=== PATIENT | female | born 1960 | race Caucasian/White ===

== ENCOUNTER 2023-03-14 11:44 | Emergency (ER) | payer MEDICARE, MEDICAID, SELFPAY ==
--- NOTE | ~2023-03-14 | XR_ITS ---
EXAMINATION: XR FOOT, LEFT CLINICAL INFORMATION: Question cellulitis, pain COMPARISON: None available. TECHNIQUE: AP, lateral, and oblique views of the left foot. FINDINGS: No acute visible fracture or dislocation. Slight enthesopathy at the base of the fifth metatarsal. Mild multi joint arthritic changes. Joint spaces and alignment are otherwise maintained. Soft tissues are unremarkable. XR/XR foot LT min 3V IMPRESSION: 1. No acute visible fracture or dislocation. 2. Slight enthesopathy at the base of the fifth metatarsal. 3. Mild multi joint arthritic changes.
[2023-03-14 11:59] VITALS: BP 119/78; PULSE 100; RESP 18; TEMP 36.7; O2SAT 98; BMI 30.9
--- NOTE | 2023-03-14 12:04 | ED.EXTPRO ---
HPI - Extremity Problem General Chief complaint: Extremity Problem Stated complaint: foot pain Time Seen by Provider: 03/14/23 13:38 History of Present Illness HPI Narrative: 63-year-old female with history of gout and frequent candidal foot infections, presents to ER today with several day history of pain, swelling of left great toe. Patient describes that 1 month ago, she noticed a slit on the plantar aspect of her left great toe, at the MTP joint. She went to her PCP who recommended moisturizers. Within the last week, she noticed a small blood blister originating at the nail bed of her great big toe. She states that the blood blister has been progressively growing in size over the last week. She reports that in the last few days her great toe has been swollen, warm, extremely painful to touch, and burning. She states that the pain radiates up her dorsal foot, ending around the proximal end of her great metatarsal. States she has been taking Tylenol and Aleve without relief. Has had episodes of gout in the past, resolved by a 10-day course of prednisone. Has been using antifungal creams regularly on her feet for months. Denies any fevers, chills, body aches, vomiting. Denies any personal history of diabetes. Denies blood thinners. MD Complaint: joint swelling and joint pain Onset (ago): day(s) Pain Consistency: constant Location: toe Quality: burning Radiation: proximal Exacerbating factors: walking and palpation Context: history of gout Related Data Previous Rx's Medication Instructions Recorded cephalexin 500 mg tablet 500 mg PO Q6H 7 days #28 tabs 03/14/23 colchicine (gout) 0.6 mg tablet 0.6 mg PO BID #14 tabs 03/14/23 (Colcrys) doxycycline hyclate 100 mg tablet 100 mg PO BID #14 tabs 03/14/23 naproxen 500 mg tablet,delayed 500 mg PO BID #14 tabs 03/14/23 release oxycodone 5 mg tablet 5 mg PO TID PRN severe pain (scale 03/14/23 score 7-10) #7 tabs prednisone 50 mg tablet 50 mg PO DAILY #5 tabs 03/14/23 Allergies Allergy/AdvReac Type Severity Reaction Status Date / Time No Known Allergies Allergy Verified 03/14/23 12:01 Review of Systems Review of Systems: Yes all other systems are reviewed and are negative FORMERLY [facility], [facility]–1983 Social History Social History Advance Directives: No Advance Directives Information Provided: Yes Physical Exam Vital Signs: Vital Signs: Last Vital Signs Temp 98.1 F 03/14/23 11:59 Pulse 100 03/14/23 11:59 Resp 18 03/14/23 11:59 BP 119/78 03/14/23 11:59 Pulse Ox 98 03/14/23 11:59 O2 Del Method Room Air 03/14/23 11:59 BMI result Body Mass Index 30.9 Const: General: cooperative, healthy appearing, comfortable and no acute distress Orientation/consciousness: patient oriented x3 Resp: Effort & Inspection: normal respiratory effort and able to speak in complete sentences Cardio: Peripheral pulses: posterior tibial pulses present and dorsalis pedis present Neuro: General: patient oriented x3 Extrem: Left lower extremity: foot Details: abnormal to inspection (5 cm superficial blood blister to dorsal aspect of left great toe, spanning from proximal nail bed to nearly MTP joint.), tenderness Location: of the great toe Location: along the entire digit, abnormal ROM of toe, warmth Location: of the great toe Location: along the dorsal aspect and along the entire digit, edema Location: of the great toe Location: at the MTP joint and laceration (Slit to plantar aspect of MTP joint of great left toe.) Course Course Course Narrative: This is an RME: Additional HPI, ROS, PE not included below will be deferred to primary provider. This is a [id number]-female, with a hx of gout, presenting to the ER with a complaint of left great toe pain x 2 days. No trauma or injury. ?hematoma vs blood blister on left great toe. Warm, mildly erythematous, limited ROM. Plan: Labs, inflammatory markers, xray left great toe ordered. Medications Administered Discontinued Medications Generic Name Dose Route Start Last Admin Trade Name Freq PRN Reason Stop Dose Admin Colchicine 1.2 mg 03/14/23 15:08 03/14/23 15:43 Colchicine 0.6 Mg Tablet PO 03/14/23 15:09 1.2 mg ONCE ONE Administration Ketorolac Tromethamine 30 mg 03/14/23 14:36 03/14/23 14:46 Ketorolac Tromethamine 30 Mg/Ml Vial IM 03/14/23 14:37 30 mg ONCE ONE Administration Medical Decision Making Medical Decision Making MDM Narrative: 63-year-old female with history of gout, presents with 1 week history of lesion to toe. 1 month ago, she noticed slit on plantar aspect of great toe in MTP joint space. In the last few days, the hematoma has spread and her toe is now painful, erythematous, swollen. Cannot move her toes on left foot. Physical exam reveals decreased range of motion of phalanges of left foot. Left great toe has 5 cm hematoma and left medial great toe is swollen, extremely painful to touch. WBC, CRP, and uric acid are all increased. XR shows no fracture or dislocation. Will prescribe colchicine to treat likely gout flare, as well as Keflex to treat possible infection of great toe. Hesitant to use NSAIDs or prednisone in treatment of gout considering patient's concurrent use of Alleve, and do not want prednisone to worsen potential infection. Comfortable using colchicine because patient's renal function is within normal limits. Differential Diagnosis Differential Diagnoses: The differential diagnosis associated with the presentation includes gout, cellulitis, septic joint, pseudogout, hematoma, blood blister, open fracture Admission/Observation Consideration of admission/observation: Escalation of care including admission/observation considered Lab Data [facility] Lab Attestation statement: I reviewed the patient's lab results. mild leukocytosis w/ elevated inflammatory markers 03/14/23 12:18 03/14/23 12:18 Labs: Lab Results 03/14/23 03/14/23 03/14/23 Range/Units 12:18 12:18 12:18 WBC 13.5 H (4.8-10.8) X10*3/uL RBC 4.29 (4.20-5.50) X10*6/uL Hgb 12.8 (12.0-16.0) g/dl Hct 39.8 (37.0-47.0) % MCV 92.8 (80.0-98.0) fL MCH 29.8 (27.0-33.0) pg MCHC 32.2 (31.0-35.0) g/dl RDW 14.6 (11.0-16.0) % Plt Count 144 L (160-400) X10*3/uL MPV 10.8 (9.4-12.3) fL Immature Gran % (Auto) 0.4 (0.0-0.4) % Neut % (Auto) 82.0 H (45-73) % Lymph % (Auto) 8.2 L (20-40) % Gregory % (Auto) 7.9 (2-11) % Eos % (Auto) 1.0 (0-4) % Baso % (Auto) 0.5 (0-2) % Lymph # (Auto) 1.1 L (1.2-4.9) X10*3/uL Gregory # (Auto) 1.1 (0.1-1.2) X10*3/uL Eos # (Auto) 0.1 (0.0-0.4) X10*3/uL Baso # (Auto) 0.1 (0.0-0.2) X10*3/uL Abs Immat Gran (auto) 0.05 H (0.00-0.03) X10*3/uL Absolute Neuts (auto) 11.1 H (2.0-8.3) x10*3/uL Absolute Nucleated RBC 0.000 (0.0-0.012) X10*3/uL Nucleated RBC % (auto) 0.0 (0.0-0.2) /100WBC ESR 12 (0-20) MM/HR Sodium 143 (135-145) mmol/L Potassium 3.8 (3.3-5.1) mmol/L Chloride 108 (96-108) mmol/L Carbon Dioxide 24 (22-29) mmol/L Anion Gap 15 (12-20) BUN 13 (9-16) mg/dL Creatinine 0.82 (0.5-1.4) mg/dL Estim Creat Clear Calc 70.6 Estimated GFR > 60 Random Glucose 103 (60-115) mg/dL Uric Acid 8.2 H (2.4-5.7) mg/dL Calcium 9.3 (8.4-10.2) mg/dL Total Bilirubin 0.6 (0.0-1.0) mg/dL Direct Bilirubin 0.2 (0.0-0.5) mg/dL AST 18 (5-31) U/L ALT 24 (0-31) U/L Alkaline Phosphatase 81 (39-117) U/L C-Reactive Protein 3.87 H (< or = 0.50) mg/dL Total Protein 6.9 (6.5-8.0) g/dL Albumin 4.3 (3.5-5.0) g/dL Independent Interpretation I performed an independent interpretation of an: Plain X-Ray Interpretation: I have reviewed patient's x-ray and I agree with radiologist interpretation. Radiology Impression Discussion of test interpretation with radiology: I have reviewed the radiologist's reading. Radiologist Impression: EXAMINATION: XR FOOT, LEFT CLINICAL INFORMATION: Question cellulitis, pain COMPARISON: None available.? TECHNIQUE: AP, lateral, and oblique views of the left foot. FINDINGS: No acute visible fracture or dislocation. Slight enthesopathy at the base of the fifth metatarsal. Mild multi joint arthritic changes. Joint spaces and alignment are otherwise maintained. Soft tissues are unremarkable. XR/XR foot LT min 3V IMPRESSION: 1.? No acute visible fracture or dislocation. 2.? Slight enthesopathy at the base of the fifth metatarsal. 3.? Mild multi joint arthritic changes. External Record Review External record reviewed: Outpatient record, Prior outpatient labs and Prior outpatient radiology Prescription Management I considered prescription management with: Pain Medication and Antibiotic Chronic Conditions Patient?s care impacted by: Other (hx gout) Critical Care Time Critical Care Time Critical Care Time: No Discharge Plan Discharge Clinical Impression: Gout, Cellulitis Patient Disposition: Home, Self-Care Instructions: Cellulitis (ED), Gout (ED) Additional Instructions: Do not pop the blood blister. When/if it pops, keep the superficial skin layer attached, it will act as a natural band aid. Take the prescribed medications as directed. Take the prescribed antibiotics as directed, complete the entire course and do not miss any doses Elevate your foot and stay off of it as much as possible. Take tylenol 975 mg every 6-8 hours along with the prescribed anti-inflammatory naproxyn two times per day Follow up with your doctor Follow up with a junior java developer If you develop new or worsening symptoms call 911 or come back to the ER for further evaluation. Prescriptions: New colchicine (gout) [Colcrys] 0.6 mg tablet 0.6 mg PO BID Qty: 14 0RF naproxen 500 mg tablet,delayed release (DR/EC) 500 mg PO BID Qty: 14 0RF doxycycline hyclate 100 mg tablet 100 mg PO BID Qty: 14 0RF cephalexin 500 mg tablet 500 mg PO Q6H 7 Days Qty: 28 0RF oxycodone 5 mg tablet 5 mg PO TID PRN (Reason: severe pain (scale score 7-10)) Qty: 7 0RF Rx Instructions: Partial Fill upon patient request. prednisone 50 mg tablet 50 mg PO DAILY Qty: 5 0RF Referrals: Kaleb Crocker MD [Physician] - Interventions: ED Discharge Assessment Last Done: 03/14/23 15:54 Discharge Date/Time: 03/14/23 15:56
[2023-03-14 12:26] LABS: MANUAL DIFF FLAG NO
[2023-03-14 12:32] LABS: Basophils Absolute Auto 0.1 X10*3/uL (0.0-0.2); Basophils Percent Auto 0.5 % (0-2); Eosinophils Absolute Auto 0.1 X10*3/uL (0.0-0.4); Hematocrit 39.8 % (37.0-47.0); Hemoglobin 12.8 g/dl (12.0-16.0); Imm Gran Abs Auto 0.05 X10*3/uL (0.00-0.03); Imm Gran Pct Auto 0.4 % (0.0-0.4); Lymphocytes Absolute Auto 1.1 X10*3/uL (1.2-4.9); Lymphocytes Percent Auto 8.2 % (20-40); Mean Corpuscular HGB Conc 32.2 g/dl (31.0-35.0); Mean Corpuscular Hemoglobin 29.8 pg (27.0-33.0); Mean Corpuscular Volume 92.8 fL (80.0-98.0); Mean Platelet Volume 10.8 fL (9.4-12.3); Monocytes Absolute Auto 1.1 X10*3/uL (0.1-1.2); Monocytes Percent Auto 7.9 % (2-11); Neutrophils Absolute Auto 11.1 x10*3/uL (2.0-8.3); Platelet Count 144 X10*3/uL (160-400); Red Blood Count 4.29 X10*6/uL (4.20-5.50); Red Cell Distribution Width 14.6 % (11.0-16.0); White Blood Count 13.5 X10*3/uL (4.8-10.8)
[2023-03-14 12:47] LABS: Alanine Aminotransferase 24 U/L (0-31); Albumin Level 4.3 g/dL (3.5-5.0); Alkaline Phosphatase 81 U/L (39-117); Anion Gap 15 (12-20); Aspartate Amino Transferase 18 U/L (5-31); Bilirubin Direct 0.2 mg/dL (0.0-0.5); Bilirubin Total 0.6 mg/dL (0.0-1.0); Blood Urea Nitrogen 13 mg/dL (9-16); C Reactive Protein 3.87 mg/dL (< or = 0.50); Calcium 9.3 mg/dL (8.4-10.2); Carbon Dioxide 24 mmol/L (22-29); Chloride 108 mmol/L (96-108); Creatinine Clr Calc Pharmacy 70.6; Estimated Glomerular Filt Rate > 60; Glucose Random 103 mg/dL (60-115); Potassium 3.8 mmol/L (3.3-5.1); Sodium 143 mmol/L (135-145); Total Protein 6.9 g/dL (6.5-8.0); Uric Acid 8.2 mg/dL (2.4-5.7)
[2023-03-14 13:12] LABS: Erythrocyte Sedimentation Rate 12 MM/HR (0-20)
[2023-03-14] MEDS: Ketorolac Tromethamine 30 MG/ML VIAL IM (14:46)
[2023-03-14] MEDS: Colchicine 0.6 MG TABLET 1.2 MG PO (15:43)
== END 2023-03-14 15:56 | disposition home or self-care (01) ==
PROVIDERS: Physician Assistant Medical; Emergency Provider Emergency Medicine
DX: M10.072 Idiopathic gout, left ankle and foot (principal); L03.116 Cellulitis of left lower limb; Z79.899 Other long term (current) drug therapy
CPT/HCPCS: 36415; 73630; 80048; 80076; 84550; 85025; 85652; 86140; 96372; 99283; 99284; J1885

== ENCOUNTER 2023-05-07 13:09 | Outpatient (REF) | payer MEDICARE, OTHER, SELFPAY ==
--- NOTE | ~2023-05-07 | US_ITS ---
EXAMINATION: NONINVASIVE ASSESSMENT OF THE ARTERIES OF THE RIGHT LOWER EXTREMITY WITH LOWER EXTREMITY DUPLEX CLINICAL INFORMATION: Ulcer, rule out PAD COMPARISON: None TECHNIQUE: Duplex Doppler techniques with wave form analysis and measurement of velocities in the common femoral, profunda femoral, superficial femoral, popliteal, tibial and peroneal arteries. The study was performed only at rest. FINDINGS: RIGHT LEG Common femoral artery: 119 cm/s, Multiphasic Profunda femoris artery: 79.2 cm/s, Multiphasic Superficial femoral artery (proximal): 121 cm/s, Multiphasic Superficial femoral artery (mid): 91 cm/s, Multiphasic Superficial femoral artery (distal): 62.3 cm/s, Multiphasic Proximal Popliteal artery: 41.3 cm/s, Multiphasic Distal popliteal artery: 50.6 cm/s, Multiphasic Mid posterior tibial artery: 97.5 cm/s, Multiphasic Peroneal artery: 33.9 cm/s, Multiphasic Anterior tibial artery: 66.8 cm/s, triphasic Dorsalis pedis: 19 cm/s, biphasic There are collateral vessels within the right anterior calf. US/US arterial duplex LE RT IMPRESSION: There is biphasic flow at the level of the dorsalis pedis, otherwise there is normal multiphasic flow throughout the visualized arteries of the right lower extremity.
== END 2023-05-07 13:10 | disposition home or self-care (01) ==
LOC: HO.US 13:09
PROVIDERS: Visit Provider Physician Assistant
DX: I73.9 Peripheral vascular disease, unspecified (principal); L97.512 Non-pressure chronic ulcer of other part of right foot with fat layer exposed
CPT/HCPCS: 93926